=== PATIENT | female | born 1985 | race African-American/Black ===

== ENCOUNTER 2022-05-06 00:24 | Emergency (ER) | payer MEDICAID ==
[~2022-05-06] VITALS: Ht 167.6 cm; Wt 69.0 kg
[~2022-05-06 00:24] MED LIST: QUET100T PO
[2022-05-06 00:51] VITALS: BP 124/85
== END 2022-05-06 04:10 | disposition left against medical advice (07) ==
LOC: ER 01:16
DX: Z53.21 Procedure and treatment not carried out due to patient leaving prior to being seen by health care provider (principal)

== ENCOUNTER 2023-10-17 21:10 | Emergency (ER) | payer MEDICAID, OTHER ==
[~2023-10-17] VITALS: Ht 167.6 cm; Wt 65.0 kg
[2023-10-17 21:23] VITALS: BP 140/90; PULSE 90; RESP 16; TEMP 98.5; O2SAT 100
[2023-10-17] MEDS ORDERED: CEFTRIAXONE SODIUM 500MG VIAL IM ONE (22:15)
[2023-10-18] MEDS ORDERED: DOXY100T2 MT (02:42)
== END 2023-10-18 03:35 | disposition left against medical advice (07) ==
LOC: ER 21:10
DX: T74.21XA Adult sexual abuse, confirmed, initial encounter (principal); F12.90 Cannabis use, unspecified, uncomplicated; E11.9 Type 2 diabetes mellitus without complications; I10 Essential (primary) hypertension; Z98.890 Other specified postprocedural states; Z88.6 Allergy status to analgesic agent; X58.XXXA Exposure to other specified factors, initial encounter; Y93.89 Activity, other specified; Y92.89 Other specified places as the place of occurrence of the external cause; Y99.8 Other external cause status
CPT/HCPCS: 99283

== ENCOUNTER 2023-10-18 04:21 | Emergency (ER) | payer MEDICAID, OTHER ==
[~2023-10-18] VITALS: Ht 165.1 cm; Wt 65.0 kg
[~2023-10-18 04:21] MED LIST changes: +DOXY100T2 MT
[2023-10-18 04:32] VITALS: O2SAT 99
[2023-10-18 05:50] LABS: EOSINOPHILS % 0.5 % (0.0-5.0); HEMATOCRIT. 40.6 % (36.0-48.0); HEMOGLOBIN. 13.4 g/dL (12.0-16.0); LYMPHOCYTES % 16.2 % (20.0-50.0); MEAN CORPUSCULAR HEMOGLOBIN 29.9 pg (28.0-32.0); MEAN CORPUSCULAR HGB CONC 33.1 g/dL (31.0-37.0); MEAN CORPUSCULAR VOLUME 90.5 fL (81.0-99.0); MEAN PLATELET VOLUME 7.4 fl (7.4-10.4); MONOCYTES % 5.4 % (2.0-8.0); NEUTROPHILS % 76.9 % (40.0-76.0); PLATELET 374 x1000/uL (130-400); RED BLOOD CELL COUNT 4.48 mill/uL (4.2-5.4); RED CELL DISTRIBUTION WIDTH 15.5 % (11.6-14.6); WHITE BLOOD COUNT 7.3 x1000/uL (4.5-11.0)
[2023-10-18 06:04] LABS: ACETAMINOPHEN < 2 ug/mL (10-30); ALANINE AMINOTRANSFERASE 15 IU/L (10-49); ALBUMIN 4.6 g/dL (3.2-4.8); ASPARTATE AMINOTRANSFERASE 22 IU/L (<34); BILIRUBIN TOTAL 0.5 mg/dL (0.1-1.0); CALCIUM 9.5 mg/dL (8.7-10.4); CARBON DIOXIDE 28 mEq/L (21-32); CHLORIDE 106 mEq/L (98-107); CREATININE 0.7 mg/dL (0.6-1.0); GLUCOSE 107 mg/dL (70-105); POTASSIUM 3.4 mEq/L (3.5-5.1); PROTEIN TOTAL 7.9 g/dL (6.0-8.3); SODIUM 141 mEq/L (136-145); UREA NITROGEN BLOOD 12 mg/dL (9-23)
[2023-10-18 06:06] LABS: ETHANOL BLOOD < 10 mg/dL (<10)
[2023-10-18 06:30] LABS: HCG SCREEN NEGATIVE
[2023-10-18 11:20] LABS: TROPONIN I HIGH SENSITIVITY < 4 ng/L (3.0-34)
[2023-10-18] MEDS: ACETAMINOPHEN 325MG TABLET PO ONE (16:31)
[2023-10-18] MEDS: LORAZEPAM 1MG TABLET PO ONE (16:31)
[2023-10-19 05:24] LABS: *AMPHETAMINES SCREEN URINE PRESUMPTIVE POSITIVE (NEGATIVE); *BARBITURATES SCREEN URINE NEGATIVE (NEGATIVE); *BENZODIAZEPINES SCREEN URINE NEGATIVE (NEGATIVE); *COCAINE SCREEN URINE NEGATIVE (NEGATIVE); CANNABINOID URINE SCREEN PRESUMPTIVE POSITIVE (NEGATIVE); ECSTASY MDMA SCREEN URINE NEGATIVE (NEGATIVE); METHADONE URINE SCREEN Neg (NEGATIVE); OPIATES URINE SCREEN NEGATIVE (NEGATIVE); PHENCYCLIDINE URINE SCREEN NEGATIVE (NEGATIVE)
[2023-10-19] MEDS: METFORMIN HCL 500MG TABLET PO SCH (09:35)
[2023-10-19] MEDS: QUETIAPINE FUMARATE 50MG TABLET PO SCH (09:35)
[2023-10-19 20:39] VITALS: BP 104/62; PULSE 83; RESP 12; TEMP 98.9
== END 2023-10-19 20:47 ==
LOC: ER 04:21
DX: R45.851 Suicidal ideations (principal); F12.90 Cannabis use, unspecified, uncomplicated; Z88.6 Allergy status to analgesic agent; E11.9 Type 2 diabetes mellitus without complications; I10 Essential (primary) hypertension; Z98.890 Other specified postprocedural states; Z20.822 Contact with and (suspected) exposure to COVID-19
CPT/HCPCS: 80053; 80307; 80329; 80320; 84703; 85025; 84484; 36415; 93005; 99285; 87426; 80305; Z7610 ×2; G0480